=== PATIENT | female | born 1995 | race Hispanic/Latino ===

== ENCOUNTER 2021-11-14 19:16 | Emergency (ER) | payer OTHER ==
[2021-11-14 20:39] LABS: Urine Blood 2+ (Negative); Urine Glucose Negative (Negative); Urine Protein Negative (Negative); Urine Specific Gravity >=1.030 (1.005-1.030); Urine pH 5.5 (5.0-7.0)
[2021-11-14 20:46] LABS: Absolute Lymphocytes (CBC) 0.9 K/uL (0.7-4.9); Hematocrit 41.6 % (36.0-45.0); Lymphocytes % 7.6 % (15.3-44.8); MPV 10.7 fL (7.6-11.3); RBC Red Blood Cell Count 4.52 M/uL (3.86-4.86)
[2021-11-14 20:56] LABS: Potassium 3.8 mmol/L (3.5-5.1)
--- NOTE | 2021-11-14 20:57 | RAD REPORT ---
EXAM DESCRIPTION: RAD - Knee Left 3 View - 11/14/2021 8:50 pm CLINICAL HISTORY: Pain COMPARISON: No comparisons FINDINGS/IMPRESSION: No acute fracture. No malalignment. No significant focal degenerative changes.
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
[2021-11-14] MEDS ORDERED: IBUPROFEN 200 MG TAB PO ONE (22:24)
[2021-11-14] MEDS ORDERED: ACETAMINOPHEN 325 MG TABLET ONE (22:24)
[2021-11-14] MEDS ORDERED: IBUPROFEN 400 MG TAB ONE (22:24)
[2021-11-15 01:32] VITALS: TEMP 98.7
[2021-11-15 01:43] VITALS: BP 126/71; O2SAT 100
== END 2021-11-14 22:22 | disposition home or self-care (01) ==
LOC: ER 19:16
DX: M54.9 Dorsalgia, unspecified (principal); M25.562 Pain in left knee; V58.6XXA Passenger in pick-up truck or van injured in noncollision transport accident in traffic accident, initial encounter; Z88.0 Allergy status to penicillin
CPT/HCPCS: 85025; 80048; 36415; 81003; 71260; 74177; 73562; 99284; Q9967